=== PATIENT | female | born 1950 | race Caucasian/White ===

== ENCOUNTER 2018-03-29 05:14 | Outpatient (RCR) | payer MEDICARE, BC ==
[~2018-03-29] VITALS: Ht 177.8 cm; Wt 85.9 kg
[~2018-03-29 05:14] MED LIST: ALBUTEROL0.09 MG/A4 IH; ATORVASTATIN CA10 MG PO; DIABETA5 MG PO; DUO-KAPS1 CAP PO; FUROSEMIDE20 MG PO; GOOD SENSE ASPI81 M1 PO; LANTUS100 U/ML SQ; LISINOPRIL5 MG PO; METFORMIN500 MG PO; METOPROLOL TART25 MG PO; NITROQUICK0.4 MG SL; NOVOLOG 100U100 U/M1 SC; WARFARIN SOD5 MG PO; ZOFRAN ODT8 MG PO
[2018-03-29 05:30] VITALS: BP 141/76
[2018-03-29] MEDS ORDERED: MAXIPIME2 G1 IV (05:42)
[2018-03-29] MEDS ORDERED: NORCO 325 MG-51 TA1 PO (05:42)
[2018-03-29] MEDS ORDERED: ADVIL PM CAPLE1 EACH PO (05:43)
[2018-03-29] MEDS ORDERED: INVOKAMET XR 11 EAC1 PO (05:44)
[2018-03-29] MEDS ORDERED: XARELTO20 MG PO (05:44)
[2018-03-29] MEDS ORDERED: VANCOMYCIN 11 G/VIAL IV (05:45)
[2018-03-29 08:00] VITALS: BP 161/90
[2018-03-29 17:11] VITALS: BP 151/116
[2018-03-29 19:23] VITALS: BP 152/62
[2018-03-30 05:08] VITALS: BP 140/73
[2018-03-30 07:26] VITALS: BP 144/81
[2018-03-30 17:24] VITALS: BP 146/78
[2018-03-30 19:25] VITALS: BP 134/82
[2018-03-31 05:00] VITALS: BP 137/65
[2018-03-31 07:23] VITALS: BP 121/65
[2018-03-31 16:52] VITALS: BP 111/63
[2018-03-31 19:22] VITALS: BP 146/70
[2018-04-01 05:00] VITALS: BP 153/70
[2018-04-01 05:11] VITALS: BP 153/70
[2018-04-01 07:29] VITALS: BP 137/76
[2018-04-01 17:03] VITALS: BP 126/74
[2018-04-01 20:04] VITALS: BP 115/70
[2018-04-02 05:12] VITALS: BP 135/84
[2018-04-02 07:10] VITALS: BP 167/89
[2018-04-02 16:49] VITALS: BP 131/61
[2018-04-02 19:08] VITALS: BP 130/64
[2018-04-03 05:03] VITALS: BP 148/69
[2018-04-03 07:00] VITALS: BP 132/63
[2018-04-03 17:00] VITALS: BP 116/68
[2018-04-03 19:05] VITALS: BP 147/73
[2018-04-04 05:03] VITALS: BP 131/63
[2018-04-04 07:17] VITALS: BP 139/74
[2018-04-04 18:23] VITALS: BP 107/62
[2018-04-04 19:50] VITALS: BP 143/71
[2018-04-05] MEDS ORDERED: ZESTRIL5 M1 PO (05:04)
[2018-04-05] MEDS ORDERED: JANUMET XR 10001 TE1 PO (05:27)
[2018-04-05] MEDS ORDERED: LIPITOR 80MG80 MG PO (05:29)
[2018-04-05] MEDS ORDERED: COREG 3.123.125 MG/T PO (05:29)
[2018-04-05] MEDS ORDERED: VICTOZA 3-0.6 MG/0.1 SQ (05:30)
[2018-04-05 06:02] VITALS: BP 138/69
[2018-04-05 07:55] VITALS: BP 135/66
[2018-04-05 16:51] VITALS: BP 92/56
[2018-04-05 19:00] VITALS: BP 113/67
[2018-04-06 04:55] VITALS: BP 139/64
[2018-04-06 07:19] VITALS: BP 130/63
--- NOTE | 2018-04-06 09:09 | NUR ---
CONTACTED KATELYNN VENEGAS D AT [facility] WITH VANC TROUGH, ORDERS TO HOLD THIS 5PM DOSE, REDRAW TROUGH IN AM, AT THIS TIME ALSO HOLD AM VANC DOSE.
--- NOTE | 2018-04-06 09:37 | NUR ---
CHANGE OF ORDERS BY PHARMACY, PATIENT NOTIFIED OF NO DOSING THIS PM, SHE STATES SHE WAS CALLED BY DR. GALARZA OFFICE TO BE SEEN TODAY. SHE C/O LEG EDEMA, ABDOMINAL BLOATING AND ABDOMINAL PAIN, ATEMPTED TO CONTACT DR. GALARZA OFFICE-MESSAGE LEFT ON VOICEMAIL.
--- NOTE | 2018-04-06 10:34 | NUR ---
DR. OSEI OFFICE RETURNS CALL, UPDATE GIVEN
[2018-04-07 05:05] VITALS: BP 152/77
--- NOTE | 2018-04-07 05:15 | NUR ---
PATIENT HAS BEEN HAVING DIARRHEA FOR 2 DAYS, ALSO HAS BEEN NAUSEATED AND NOT KEEPING SOLID FOOD DOWN, ARRIVES THIS AM WITH A STOOL SAMPLE FOR C-DIFF CULTURE, BLOOD DRAWN FROM PICC LINE WITHOUT DIFFICULTY AND SENT TO LAB FOR VANCOMYCIN TROUGH AND REPEAT SERUM CREATININE LEVEL, IV ANTIBIOTICS STARTED VIA PICC LINE AT THIS TIME, PATIENT RESTING QUIETLY ON COT WITH COOL CLOTH TO FOREHEAD
--- NOTE | 2018-04-07 05:50 | NUR ---
IV ANTIBIOTICS COMPLETED, CAPS CHANGES TO BOTH PICC PORTS AND BOTH FLUSHED EASILY, PATIENT VOMITS ABOUT 50 CC OF BILE, CLAIMS SHE HAS BEEN KEEPING SOME FLUIDS DOWN BUT CAN "BARELY TAKE PLAIN TOAST RIGHT NOW" ENCOURAGED TO TRY TO STAY HYDRATED, NOT TO EAT IF SHE FEELS LIKE SHE WILL VOMIT IT UP AND TO FOLLOW UP WITH HER PROVIDER NEEDED, NURSING STAFF WILL CALL HER WITH THE VANCOMYCIN TROUGH RESULTS AND PLAN FOR FUTURE IV ANTIBIOTIC DOSES, PATIENT VERBALIZES UNDERSTANDING OF PLAN
[2018-04-07 05:56] VITALS: BP 151/93
--- NOTE | 2018-04-07 14:50 | NUR ---
Message left with Dr. Church nurse with creatnine results.
== END 2018-04-07 08:00 | disposition home or self-care (01) ==
LOC: AMSURD 05:14
DX: E11.621 Type 2 diabetes mellitus with foot ulcer (principal); L97.519 Non-pressure chronic ulcer of other part of right foot with unspecified severity; L03.115 Cellulitis of right lower limb; R19.7 Diarrhea, unspecified
CPT/HCPCS: J0692; J1644; J3370; J7040; J7050

== ENCOUNTER → 2018-03-30 | Outpatient (CLI) | payer MEDICARE, BC ==
[~2018-03-30] MED LIST changes: +ADVIL PM CAPLE1 EACH PO; +INVOKAMET XR 11 EAC1 PO; +MAXIPIME2 G1 IV; +NORCO 325 MG-51 TA1 PO; +VANCOMYCIN 11 G/VIAL IV; +XARELTO20 MG PO
[2018-03-30 05:08] VITALS: BP 140/73
[2018-03-30 07:15] LABS: HEMATOCRIT 36.7 % (37.0-47.0); HEMOGLOBIN 12.4 g/dL (12.5-16.0); RED BLOOD COUNT 4.43 M/mm3 (4.10-5.30); RED CELL DISTRIBUTION WIDTH 15.3 % (11.5-14.5); WHITE BLOOD COUNT 6.3 K/mm3 (4.8-10.8)
[2018-03-30 07:26] LABS: ALBUMIN 3.5 g/dL (3.5-5.0); CALCIUM 8.5 mg/dL (8.4-10.2); POTASSIUM 3.4 mmol/L (3.6-5.0); TOTAL BILIRUBIN 0.7 mg/dL (0.2-1.3); TOTAL PROTEIN 6.8 g/dL (6.3-8.2)
== END ==
LOC: LAB 05:22
PROVIDERS: Internal Medicine Infectious Disease
DX: E11.628 Type 2 diabetes mellitus with other skin complications (principal); L03.115 Cellulitis of right lower limb

== ENCOUNTER → 2018-04-06 | Outpatient (CLI) | payer MEDICARE, BC ==
[2018-04-05 19:00] VITALS: BP 113/67
[~2018-04-06] MED LIST changes: +COREG 3.123.125 MG/T PO; +JANUMET XR 10001 TE1 PO; +LIPITOR 80MG80 MG PO; +VICTOZA 3-0.6 MG/0.1 SQ; +ZESTRIL5 M1 PO
[2018-04-06 06:00] LABS: HEMATOCRIT 34.9 % (37.0-47.0); HEMOGLOBIN 11.6 g/dL (12.5-16.0); MEAN PLATELET VOLUME 10.1 fl (7.4-10.4); RED BLOOD COUNT 4.14 M/mm3 (4.10-5.30); WHITE BLOOD COUNT 8.3 K/mm3 (4.8-10.8)
[2018-04-06 06:01] LABS: ALBUMIN 3.4 g/dL (3.5-5.0); BUN/CREATININE RATIO 9.4 (6.0-26.0); CALCIUM 8.2 mg/dL (8.4-10.2); POTASSIUM 3.4 mmol/L (3.6-5.0); TOTAL BILIRUBIN 0.7 mg/dL (0.2-1.3); TOTAL PROTEIN 6.4 g/dL (6.3-8.2)
[2018-04-06 13:50] LABS: C-REACTIVE PROTEIN XXX
== END ==
LOC: LAB 04:55
PROVIDERS: Internal Medicine Infectious Disease
DX: E11.628 Type 2 diabetes mellitus with other skin complications (principal); L03.115 Cellulitis of right lower limb

== ENCOUNTER → 2018-04-07 | Outpatient (CLI) | payer MEDICARE, BC ==
[2018-04-06 07:19] VITALS: BP 130/63
== END ==
LOC: LAB 05:04
PROVIDERS: Nurse Practitioner Family
DX: R19.5 Other fecal abnormalities (principal); E11.621 Type 2 diabetes mellitus with foot ulcer

== ENCOUNTER 2018-04-15 09:04 | Emergency (ER) | payer MEDICARE, BC ==
[2018-04-15] MEDS ORDERED: FLAGYL500 M1 PO (09:42)
[2018-04-15] MEDS ORDERED: ELIQUIS2.5 MG PO (09:42)
[2018-04-15 10:01] LABS: HEMATOCRIT 31.8 % (37.0-47.0); HEMOGLOBIN 10.5 g/dL (12.5-16.0); MEAN CELL VOLUME 83 fl (78-100); MEAN CORPUSCULAR HEMOGLOBIN 28 pg (27-31); MEAN CORPUSCULAR HGB CONC 33 g/dL (33-37); MEAN PLATELET VOLUME 9.9 fl (7.4-10.4); PLATELET COUNT 215 K/mm3 (130-400); RED BLOOD COUNT 3.82 M/mm3 (4.10-5.30); RED CELL DISTRIBUTION WIDTH 15.5 % (11.5-14.5)
[2018-04-15 10:10] LABS: ALBUMIN 3.4 g/dL (3.5-5.0); BUN/CREATININE RATIO 8.5 (6.0-26.0); CALCIUM 8.5 mg/dL (8.4-10.2); POTASSIUM 3.8 mmol/L (3.6-5.0); TOTAL BILIRUBIN 0.9 mg/dL (0.2-1.3); TOTAL PROTEIN 6.9 g/dL (6.3-8.2)
[2018-04-15 10:21] LABS: TROPONIN-I < 0.03 ng/mL (0.00-0.06)
[2018-04-15 10:38] LABS: LYMPHOCYTE 6 % (20-51); NEUTROPHILS 80 % (42-75)
[2018-04-15 10:39] LABS: URINE APPEARANCE HAZY; URINE COLOR YELLOW
[2018-04-15 10:39] LABS: MONOCYTE 10 % (3-10)
[2018-04-15 10:40] LABS: URINE BILIRUBIN NEGATIVE (NEGATIVE); URINE BLOOD TRACE (NEGATIVE); URINE KETONE NEGATIVE (NEGATIVE); URINE LEUKOCYTE ESTERASE TRACE (NEGATIVE); URINE NITRATE NEGATIVE (NEGATIVE); URINE PROTEIN(semi-quant) TRACE mg/dL (NEGATIVE); URINE UROBILINOGEN NORMAL (NORMAL)
[2018-04-15 13:08] VITALS: BP 151/61
== END 2018-04-15 12:53 | disposition home or self-care (01) ==
LOC: ED 09:04
PROVIDERS: Family Medicine
DX: I13.2 Hypertensive heart and chronic kidney disease with heart failure and with stage 5 chronic kidney disease, or end stage renal disease (principal); I50.1 Left ventricular failure, unspecified; E11.22 Type 2 diabetes mellitus with diabetic chronic kidney disease; N18.6 End stage renal disease; Z99.2 Dependence on renal dialysis; I48.91 Unspecified atrial fibrillation; Z95.0 Presence of cardiac pacemaker; Z79.01 Long term (current) use of anticoagulants; Z79.899 Other long term (current) drug therapy
CPT/HCPCS: J1940

== ENCOUNTER 2018-04-16 18:03 | Outpatient (RCR) | payer MEDICARE, BC ==
[~2018-04-16] VITALS: Ht 177.8 cm; Wt 94.0 kg
[~2018-04-16 18:03] MED LIST changes: +ELIQUIS2.5 MG PO; +FLAGYL500 M1 PO
[2018-04-16 18:04] VITALS: BP 163/85
--- NOTE | 2018-04-18 20:00 | NUR ---
Patient arrives for IV cubicin infusion. States that she just finished with dialysis in [place]. Medication is out of stock and not available. Attempted to contact [facility] pharmacy, as this medication is premixed and sent over. No answer x3. Suly Smith RN notified. Weekly labs drawn from PICC per protocol. Double lumen PICC, both lumens flush without difficulty. Blood return noted to both lumens. Patient updated, plan is to come in first thing in the morning for IV cubicin. Informed patient that she will be called only if plan changes. Patient verbalizes understanding. Denies questions or needs at this time.
--- NOTE | 2018-04-18 21:25 | NUR ---
Contacted mix house operator at [facility] regarding IV cubicin. States that she will contact the health and wellness sales consultant pharmacist and then call back with plan.
--- NOTE | 2018-04-18 22:00 | NUR ---
PHARMACY PRESENTATION TEAM MEMBER LAUREN WAS CONTACTED, HE WILL PERSONALLY MIX THE ANTIBIOTIC FIRST THING IN THE MORNING AND DRIVE IT OVER TO THIS HOSPITAL, PATIENT CALLED AND SHE IS PLANNING TO ARRIVE IN THE AM BETWEEN 0830 AND 0900, LABS WERE DRAWN TONTELMA, DR. AGARWAL WILL BE CONTACTED IN THE AM WITH THE LAB RESULTS AND CONSULTED ABOUT WHEN THE NEXT DOSE SHOULD BE GIVEN SHE WILL BE SIGNIFICANTLY OFF HER SCHEDULE, PATIENT AGREEABLE TO PLAN
--- NOTE | 2018-04-19 08:30 | NUR ---
Spoke w/ Berry RN w/ Dr. Reaves and notified of pt's missed daptomycin dose last evening as miscommunication w/ pharmacy having the med prepared. Pt to receive dose this am. Per Dr. Reaves, pt may recevie her next dose of daptomycin tomorrow after her dialysis and then resume every 48 hours. Pharmacy requests repeat Chemistry in am 04/20 prior to dialysis - if kidney function improves pt may be able to return to daily daptomycin. will continue to monitor. Dr. Reaves notified of pharmacy request for lab tomorrow and order received from Dr. Reaves for pt to have chemistry drawn in am prior to Daptomycin dose. Pt has f/u appt w/ dr. reaves on Tuesday which she is to keep.
[2018-04-19 10:13] VITALS: BP 149/65
--- NOTE | 2018-04-19 10:45 | NUR ---
Pt reports that she will be in at 4:45 tomorrow am for [employer] [facility] lab as ordered. Lab staff notified.
[2018-04-19 11:26] VITALS: BP 150/72
[2018-04-20 18:00] VITALS: BP 130/72
[2018-04-22 08:43] VITALS: BP 150/87
[2018-04-22 08:45] VITALS: BP 166/93
[2018-04-24 08:58] VITALS: BP 137/94
[2018-04-26 09:00] VITALS: BP 151/90
[2018-04-28 08:34] VITALS: BP 139/79
== END 2018-04-28 10:00 | disposition home or self-care (01) ==
LOC: AMSURD 18:03
DX: E11.621 Type 2 diabetes mellitus with foot ulcer (principal); L97.519 Non-pressure chronic ulcer of other part of right foot with unspecified severity; Z45.2 Encounter for adjustment and management of vascular access device; Z95.9 Presence of cardiac and vascular implant and graft, unspecified
CPT/HCPCS: J0878; J1644

== ENCOUNTER → 2018-04-18 | Outpatient (CLI) | payer MEDICARE, BC ==
[2018-04-16 18:04] VITALS: BP 163/85
[2018-04-18 22:44] LABS: HEMATOCRIT 33.2 % (37.0-47.0); MEAN PLATELET VOLUME 9.8 fl (7.4-10.4); RED BLOOD COUNT 4.03 M/mm3 (4.10-5.30); RED CELL DISTRIBUTION WIDTH 14.9 % (11.5-14.5)
[2018-04-18 22:49] LABS: ALBUMIN 3.7 g/dL (3.5-5.0); BUN/CREATININE RATIO 11.9 (6.0-26.0); CALCIUM 8.3 mg/dL (8.4-10.2); TOTAL BILIRUBIN 1.1 mg/dL (0.2-1.3); TOTAL PROTEIN 7.2 g/dL (6.3-8.2)
== END ==
LOC: LAB 08:30
PROVIDERS: Internal Medicine Infectious Disease
DX: E11.628 Type 2 diabetes mellitus with other skin complications (principal); L03.115 Cellulitis of right lower limb

== ENCOUNTER → 2018-04-20 | Outpatient (CLI) | payer MEDICARE, BC ==
[2018-04-19 11:26] VITALS: BP 150/72
[2018-04-20 05:29] LABS: ALBUMIN 3.6 g/dL (3.5-5.0); BUN/CREATININE RATIO 16.7 (6.0-26.0); CALCIUM 7.4 mg/dL (8.4-10.2); POTASSIUM 3.4 mmol/L (3.6-5.0); TOTAL BILIRUBIN 0.7 mg/dL (0.2-1.3); TOTAL PROTEIN 7.1 g/dL (6.3-8.2)
== END ==
LOC: LAB 04:58
PROVIDERS: Internal Medicine Infectious Disease
DX: E11.621 Type 2 diabetes mellitus with foot ulcer (principal); L97.519 Non-pressure chronic ulcer of other part of right foot with unspecified severity

== ENCOUNTER 2018-05-12 16:38 | Outpatient (RCR) | payer MEDICARE, BC ==
[2018-05-04 08:33] VITALS: BP 137/68
[2018-05-07 12:58] VITALS: BP 149/85
[2018-05-08 08:14] VITALS: BP 138/71
--- NOTE | 2018-05-08 08:37 | NUR ---
DR AGARWAL'S OFFICE CONTACTED REGARDING PICC REMOVAL. PATIENT'S LAST DOSE ANTIBIOTIC TOMORROW. WOUND CARE WILL CALL BACK WITH RESPONSE.
[2018-05-09 08:41] VITALS: BP 176/80
[2018-05-10 17:24] VITALS: BP 129/67
[2018-05-11 16:37] VITALS: BP 121/79
[~2018-05-12] VITALS: Ht 177.8 cm; Wt 78.2 kg
--- NOTE | 2018-05-12 16:45 | NUR ---
Blood drawn from PICC for lab orders - 10 ml wasted and 10 ml of blood drawn. PICC flushed w/ 10 ml NS and abx then infused as ordered.
--- NOTE | 2018-05-12 16:55 | NUR ---
PICC dc'd as ordered. See PICC removal intervention for details.
[2018-05-12 17:00] VITALS: BP 98/62
== END 2018-05-12 18:00 | disposition home or self-care (01) ==
LOC: AMSURD 16:38
DX: E11.621 Type 2 diabetes mellitus with foot ulcer (principal); L97.519 Non-pressure chronic ulcer of other part of right foot with unspecified severity
CPT/HCPCS: J0878; J1644

== ENCOUNTER → 2018-05-12 | Outpatient (CLI) | payer MEDICARE, BC ==
[2018-05-11 16:37] VITALS: BP 121/79
[2018-05-12 17:55] LABS: HEMATOCRIT 30.8 % (37.0-47.0); HEMOGLOBIN 10.1 g/dL (12.5-16.0); MEAN PLATELET VOLUME 10.5 fl (7.4-10.4); RED BLOOD COUNT 3.66 M/mm3 (4.10-5.30); RED CELL DISTRIBUTION WIDTH 15.5 % (11.5-14.5); WHITE BLOOD COUNT 5.3 K/mm3 (4.8-10.8)
[2018-05-12 18:04] LABS: ALBUMIN 3.9 g/dL (3.5-5.0); BUN/CREATININE RATIO 13.2 (6.0-26.0); CALCIUM 9.1 mg/dL (8.4-10.2); POTASSIUM 3.7 mmol/L (3.6-5.0); TOTAL BILIRUBIN 0.8 mg/dL (0.2-1.3)
== END ==
LOC: LAB 16:38
PROVIDERS: Internal Medicine Infectious Disease
DX: L08.9 Local infection of the skin and subcutaneous tissue, unspecified (principal)

== ENCOUNTER → 2018-08-01 | Outpatient (CLI) | payer MEDICARE, BC ==
[2018-08-01 11:12] LABS: EOS # 0.1 (0.04-0.40); EOS % 2.3 % (1.0-5.0); HEMATOCRIT 35.8 % (37.0-47.0); HEMOGLOBIN 11.5 g/dL (12.5-16.0); LYMPH# 0.9 (1.50-4.00); MEAN CELL VOLUME 83 fl (78-100); MEAN CORPUSCULAR HEMOGLOBIN 27 pg (27-31); MEAN CORPUSCULAR HGB CONC 32 g/dL (33-37); MEAN PLATELET VOLUME 10.2 fl (7.4-10.4); MONO # 0.3 (0.20-0.80); NEU # 3.5 (1.40-6.50); PLATELET COUNT 195 K/mm3 (130-400); RED CELL DISTRIBUTION WIDTH 14.1 % (11.5-14.5); WHITE BLOOD COUNT 4.9 K/mm3 (4.8-10.8)
[2018-08-01 11:14] LABS: ALBUMIN 4.2 g/dL (3.5-5.0); CALCIUM 9.2 mg/dL (8.4-10.2); POTASSIUM 3.6 mmol/L (3.6-5.0); TOTAL BILIRUBIN 1.3 mg/dL (0.2-1.3); TOTAL PROTEIN 7.7 g/dL (6.3-8.2)
== END ==
LOC: RAD 10:49
DX: K91.0 Vomiting following gastrointestinal surgery (principal); G89.18 Other acute postprocedural pain; R10.9 Unspecified abdominal pain; R19.7 Diarrhea, unspecified
CPT/HCPCS: Q9967

== ENCOUNTER → 2018-08-22 | Day surgery (SDC) | payer MEDICARE, BC | LOC: MSO 09:56 | DX: R19.7 Diarrhea, unspecified (principal); R11.2 Nausea with vomiting, unspecified; K29.70 Gastritis, unspecified, without bleeding; K57.30 Diverticulosis of large intestine without perforation or abscess without bleeding; I48.91 Unspecified atrial fibrillation; Z79.01 Long term (current) use of anticoagulants; Z79.82 Long term (current) use of aspirin; I38 Endocarditis, valve unspecified; R05 Cough; E11.9 Type 2 diabetes mellitus without complications; Z88.0 Allergy status to penicillin | CPT/HCPCS: 00813; A4649; J2704; J7030 ==

== ENCOUNTER → 2018-09-04 | Outpatient (CLI) | payer MEDICARE, BC | LOC: LAB 13:13 | DX: R10.9 Unspecified abdominal pain (principal); R14.0 Abdominal distension (gaseous); R19.7 Diarrhea, unspecified; R14.2 Eructation; R14.3 Flatulence; R19.4 Change in bowel habit ==

== ENCOUNTER 2019-02-16 23:39 | Emergency (ER) | payer MEDICARE, BC ==
[~2019-02-16] VITALS: Ht 154.9 cm; Wt 84.1 kg
[2019-02-17 00:34] LABS: EOS # 0.4 (0.04-0.40); EOS % 5.6 % (1.0-5.0); HEMOGLOBIN 12.8 g/dL (12.5-16.0); LYMPH# 1.6 (1.50-4.00); MEAN CELL VOLUME 82 fl (78-100); MEAN CORPUSCULAR HEMOGLOBIN 28 pg (27-31); MEAN CORPUSCULAR HGB CONC 34 g/dL (33-37); MEAN PLATELET VOLUME 9.5 fl (7.4-10.4); MONO # 0.6 (0.20-0.80); NEU # 4.7 (1.40-6.50); PLATELET COUNT 218 K/mm3 (130-400); RED BLOOD COUNT 4.66 M/mm3 (4.10-5.30); RED CELL DISTRIBUTION WIDTH 14.6 % (11.5-14.5); WHITE BLOOD COUNT 7.3 K/mm3 (4.8-10.8)
[2019-02-17 00:49] LABS: URINE APPEARANCE HAZY; URINE COLOR YELLOW; URINE PROTEIN(semi-quant) TRACE mg/dL (NEGATIVE)
[2019-02-17 00:49] LABS: CALCIUM 9.8 mg/dL (8.4-10.2); POTASSIUM 3.6 mmol/L (3.5-5.1); TOTAL BILIRUBIN 1.1 mg/dL (0.2-1.2); TOTAL PROTEIN 7.5 g/dL (6.2-8.1)
[2019-02-17 00:50] LABS: URINE BILIRUBIN NEGATIVE (NEGATIVE); URINE BLOOD NEGATIVE (NEGATIVE); URINE GLUCOSE NEGATIVE (NEGATIVE); URINE KETONE NEGATIVE (NEGATIVE); URINE LEUKOCYTE ESTERASE NEGATIVE (NEGATIVE); URINE NITRATE NEGATIVE (NEGATIVE); URINE UROBILINOGEN NORMAL (NORMAL)
[2019-02-17] MEDS ORDERED: LEVEMIR FLEX100 U/ML SQ (01:08)
[2019-02-17] MEDS ORDERED: ELIQUIS5 MG PO (01:09)
[2019-02-17] MEDS ORDERED: ASPIRIN E.C. 8181 MG PO (01:09)
[2019-02-17] MEDS ORDERED: LIPITOR 80MG80 MG PO (01:09)
[2019-02-17] MEDS ORDERED: LEXAPRO5 MG PO (01:10)
[2019-02-17] MEDS ORDERED: ACIDOPHILUS1 EAC2 PO (01:10)
[2019-02-17] MEDS ORDERED: COLACE100 M1 PO (01:10)
[2019-02-17] MEDS ORDERED: LASIX20 M1 PO (01:10)
[2019-02-17] MEDS ORDERED: NITROSTAT0.4 M1 SL (01:11)
[2019-02-17] MEDS ORDERED: LOPRESSOR 550 MG/TAB PO (01:11)
[2019-02-17] MEDS ORDERED: VICTOZA 3-0.6 MG/0.1 SQ (01:11)
[2019-02-17] MEDS ORDERED: PROAIR HFA0.09 MG/AC IH (01:11)
[2019-02-17] MEDS ORDERED: AMBIEN5 M1 PO (01:12)
[2019-02-17] MEDS ORDERED: ZOFRAN ODT4 MG PO (01:42)
[2019-02-17] MEDS ORDERED: GOOD NEIGHBOR P20 M1 PO (01:42)
[2019-02-17 01:50] VITALS: BP 117/64
== END 2019-02-17 01:50 | disposition home or self-care (01) ==
LOC: ED 23:39
PROVIDERS: Family Medicine
DX: K21.9 Gastro-esophageal reflux disease without esophagitis (principal); K59.00 Constipation, unspecified; I48.91 Unspecified atrial fibrillation; I25.10 Atherosclerotic heart disease of native coronary artery without angina pectoris; E11.9 Type 2 diabetes mellitus without complications; Z95.0 Presence of cardiac pacemaker; Z87.39 Personal history of other diseases of the musculoskeletal system and connective tissue; Z79.01 Long term (current) use of anticoagulants

== ENCOUNTER 2020-12-29 07:09 | Emergency (ER) | payer MEDICARE, BC ==
[~2020-12-29 07:09] MED LIST changes: +ACIDOPHILUS1 EAC2 PO; +AMBIEN5 M1 PO; +ASPIRIN E.C. 8181 MG PO; +COLACE100 M1 PO; +ELIQUIS5 MG PO; +GOOD NEIGHBOR P20 M1 PO; +LASIX20 M1 PO; +LEVEMIR FLEX100 U/ML SQ; +LEXAPRO 10MG10 MG PO; +LOPRESSOR 550 MG/TAB PO; +NITROSTAT0.4 M1 SL; +PIOGLITAZONE HC15 MG PO; +PROAIR HFA0.09 MG/AC IH; +ZOFRAN ODT4 MG PO
[2020-12-29] MEDS ORDERED: CLOPIDOGREL75 M2 PO (07:26)
[2020-12-29] MEDS ORDERED: GLIPIZIDE ER5 MG PO (07:27)
[2020-12-29] MEDS ORDERED: ESCITALOPRAM10 MG PO (07:27)
[2020-12-29] MEDS ORDERED: OMEPRAZOLE40 MG PO (07:27)
[2020-12-29] MEDS ORDERED: FUROSEMIDE20 MG PO (07:27)
[2020-12-29 09:38] VITALS: BP 154/74
== END 2020-12-29 09:18 | disposition home or self-care (01) ==
LOC: ED 07:09
DX: M25.561 Pain in right knee (principal); I10 Essential (primary) hypertension; F41.9 Anxiety disorder, unspecified; F32.9 Major depressive disorder, single episode, unspecified; Z79.01 Long term (current) use of anticoagulants; Z79.82 Long term (current) use of aspirin; Z88.0 Allergy status to penicillin; Z88.1 Allergy status to other antibiotic agents; Z79.84 Long term (current) use of oral hypoglycemic drugs; W01.10XA Fall on same level from slipping, tripping and stumbling with subsequent striking against unspecified object, initial encounter

== ENCOUNTER 2021-03-24 18:20 | Emergency (ER) | payer MEDICARE, BC ==
[~2021-03-24 18:20] MED LIST changes: +CLOPIDOGREL75 M2 PO; +ESCITALOPRAM10 MG PO; +GLIPIZIDE ER5 MG PO; +OMEPRAZOLE40 MG PO
[2021-03-24] MEDS ORDERED: FUROSEMIDE20 MG PO (18:50)
[2021-03-24] MEDS ORDERED: COLACE100 M1 PO (18:52)
[2021-03-24] MEDS ORDERED: LOSARTAN POTASS50 M1 PO (18:53)
[2021-03-24 20:55] LABS: BASO # 0.02 (0.02-0.10); EOS # 0.08 (0.04-0.40); EOS % 1.2 % (1.0-5.0); HEMATOCRIT 34.2 % (37.0-47.0); HEMOGLOBIN 11.4 g/dL (12.5-16.0); LYMPH# 1.06 (1.50-4.00); MEAN CELL VOLUME 77 fl (78-100); MEAN CORPUSCULAR HEMOGLOBIN 26 pg (27-31); MEAN CORPUSCULAR HGB CONC 33 g/dL (33-37); MONO # 0.42 (0.20-0.80); NEU # 4.87 (1.40-6.50); PLATELET COUNT 238 K/mm3 (130-400); RED BLOOD COUNT 4.42 M/mm3 (4.10-5.30); RED CELL DISTRIBUTION WIDTH 15.1 % (11.5-14.5); WHITE BLOOD COUNT 6.5 K/mm3 (4.8-10.8)
[2021-03-24 21:03] LABS: ALBUMIN 3.9 g/dL (3.4-4.8)
[2021-03-24 21:04] LABS: POTASSIUM 3.5 mmol/L (3.5-5.1)
[2021-03-24 21:05] LABS: CALCIUM 8.9 mg/dL (8.3-10.5)
[2021-03-24 21:06] LABS: TOTAL PROTEIN 8.1 g/dL (6.2-8.1)
[2021-03-24 21:07] LABS: URINE APPEARANCE HAZY; URINE COLOR YELLOW
[2021-03-24 21:08] LABS: URINE BLOOD 250 ery/uL (NEGATIVE); URINE KETONE NEGATIVE (NEGATIVE); URINE LEUKOCYTE ESTERASE TRACE (NEGATIVE); URINE NITRATE NEGATIVE (NEGATIVE); URINE PROTEIN(semi-quant) 2+ mg/dL (NEGATIVE); URINE UROBILINOGEN NORMAL (NORMAL)
[2021-03-24 21:09] LABS: URINE MUCUS PRESENT (NOT PRESENT)
[2021-03-24 21:12] LABS: URINE BILIRUBIN NEGATIVE (NEGATIVE)
[2021-03-24 23:58] VITALS: BP 142/56
== END 2021-03-24 23:58 | disposition home or self-care (01) ==
LOC: ED 18:20
PROVIDERS: Nurse Practitioner Family
DX: S52.121A Displaced fracture of head of right radius, initial encounter for closed fracture (principal); S52.132A Displaced fracture of neck of left radius, initial encounter for closed fracture; S00.83XA Contusion of other part of head, initial encounter; R51.9 Headache, unspecified; R68.84 Jaw pain; I48.91 Unspecified atrial fibrillation; I25.10 Atherosclerotic heart disease of native coronary artery without angina pectoris; I10 Essential (primary) hypertension; F41.9 Anxiety disorder, unspecified; F32.9 Major depressive disorder, single episode, unspecified; Z79.02 Long term (current) use of antithrombotics/antiplatelets; Z95.0 Presence of cardiac pacemaker; Z79.899 Other long term (current) drug therapy; Z79.01 Long term (current) use of anticoagulants; W01.0XXA Fall on same level from slipping, tripping and stumbling without subsequent striking against object, initial encounter; Y92.89 Other specified places as the place of occurrence of the external cause
CPT/HCPCS: J2405; J3010

== ENCOUNTER 2021-12-19 18:46 | Emergency (ER) | payer MEDICARE, BC ==
[~2021-12-19] VITALS: Ht 154.9 cm; Wt 90.5 kg
[~2021-12-19 18:46] MED LIST changes: +LOSARTAN POTASS50 M1 PO
[2021-12-19] MEDS ORDERED: ADULT ASPIRIN R81 MG PO (19:02)
[2021-12-19 21:41] VITALS: BP 131/84
== END 2021-12-19 21:41 | disposition home or self-care (01) ==
LOC: ED 18:46
DX: S00.83XA Contusion of other part of head, initial encounter (principal); M54.2 Cervicalgia; W07.XXXA Fall from chair, initial encounter

== ENCOUNTER 2023-05-03 16:25 | Outpatient (RCR) | payer MEDICARE, BC ==
[~2023-05-03 16:25] MED LIST changes: +ACTOS 15MG TAB15 MG; +ADULT ASPIRIN R81 MG PO; +METOPROLOL TART75 MG PO; +PROVENTIL0.09 MG/A1 IH
== END 2023-06-02 | disposition home or self-care (01) ==
LOC: PT
DX: Z47.1 Aftercare following joint replacement surgery (principal); M25.511 Pain in right shoulder; Z96.611 Presence of right artificial shoulder joint

== ENCOUNTER 2023-08-19 11:06 | Outpatient (RCR) | payer MEDICARE, BC | END 2023-09-01 | disposition home or self-care (01) | LOC: PT | DX: Z47.1 Aftercare following joint replacement surgery (principal); M25.511 Pain in right shoulder; Z96.611 Presence of right artificial shoulder joint ==

== ENCOUNTER → 2023-11-03 | Outpatient (CLI) | payer MEDICARE, BC | LOC: LAB 09:48 | DX: R91.1 Solitary pulmonary nodule (principal) ==

== ENCOUNTER 2024-01-09 08:06 | Outpatient (RCR) | payer MEDICARE, BC ==
[2024-01-14] MEDS ORDERED: LOSARTAN POTASS25 MG PO (15:31)
[2024-01-14] MEDS ORDERED: JARDIANCE10 MG PO (15:33)
[2024-01-14] MEDS ORDERED: ALDACTONE 25MG25 MG PO (15:34)
== END 2024-01-31 | disposition home or self-care (01) ==
LOC: CARDREHAB
DX: Z48.812 Encounter for surgical aftercare following surgery on the circulatory system (principal); Z98.61 Coronary angioplasty status

== ENCOUNTER → 2024-01-13 | Outpatient (CLI) | payer MEDICARE, BC ==
[~2024-01-13] MED LIST changes: +ALDACTONE 25MG25 MG PO; +JARDIANCE10 MG PO; +LOSARTAN POTASS25 MG PO
[2024-01-13 09:32] LABS: ALBUMIN 4.3 g/dL (3.4-4.8)
[2024-01-13 09:33] LABS: CALCIUM 10.4 mg/dL (8.3-10.5)
[2024-01-13 11:03] LABS: PH-URINE 5.5 (5.0 - 8.0); URINE APPEARANCE CLEAR (CLEAR); URINE BILIRUBIN NEGATIVE (NEGATIVE); URINE BLOOD NEGATIVE (NEGATIVE); URINE COLOR YELLOW (YELLOW); URINE GLUCOSE NEGATIVE (NEGATIVE); URINE KETONE NEGATIVE (NEGATIVE); URINE LEUKOCYTE ESTERASE NEGATIVE (NEGATIVE); URINE NITRATE NEGATIVE (NEGATIVE); URINE PROTEIN(semi-quant) NEGATIVE (NEGATIVE)
== END ==
LOC: RAD 08:56
PROVIDERS: Internal Medicine Nephrology
DX: N18.2 Chronic kidney disease, stage 2 (mild) (principal)

== ENCOUNTER 2024-02-06 08:00 | Outpatient (RCR) | payer MEDICARE, BC | END 2024-03-02 | disposition home or self-care (01) | LOC: CARDREHAB | DX: Z48.812 Encounter for surgical aftercare following surgery on the circulatory system (principal); Z98.61 Coronary angioplasty status ==

== ENCOUNTER 2024-04-16 08:00 | Outpatient (RCR) | payer MEDICARE, BC ==
[~2024-04-16 08:00] MED LIST changes: +NEURONTIN300 MG/CAP; +PRASUGREL HCL10 MG PO
== END 2024-05-02 | disposition home or self-care (01) ==
LOC: PT
DX: M50.321 Other cervical disc degeneration at C4-C5 level (principal)

== ENCOUNTER 2024-06-05 08:00 | Outpatient (RCR) | payer MEDICARE, BC ==
[2024-08-22] MEDS ORDERED: FARXIGA5 MG PO (18:17)
[2024-08-22] MEDS ORDERED: OZEMPIC0.25 MG/02 SQ (18:17)
[2024-08-24] MEDS ORDERED: K-TAB20 MEQ PO (12:49)
== END 2024-07-02 | disposition home or self-care (01) ==
LOC: PT
DX: M25.511 Pain in right shoulder (principal); M25.512 Pain in left shoulder; M54.2 Cervicalgia

== ENCOUNTER 2024-07-18 08:30 | Outpatient (RCR) | payer MEDICARE, BC ==
[2024-07-24] MEDS ORDERED: ATORVASTATIN CA80 MG PO (08:53)
[2024-07-24] MEDS ORDERED: METOPROLOL SUCC25 M1 PO (08:56)
[2024-07-24] MEDS ORDERED: ESCITALOPRAM20 MG PO (09:00)
[2024-08-22] MEDS ORDERED: OZEMPIC0.25 MG/02 SQ (18:17)
[2024-08-22] MEDS ORDERED: FARXIGA5 MG PO (18:17)
[2024-08-24] MEDS ORDERED: K-TAB20 MEQ PO (12:49)
== END 2024-08-02 | disposition home or self-care (01) ==
LOC: PT
DX: M54.2 Cervicalgia (principal); M25.511 Pain in right shoulder; M25.512 Pain in left shoulder

== ENCOUNTER 2024-07-24 08:17 | Emergency (ER) | payer MEDICARE, BC ==
[~2024-07-24] VITALS: Ht 154.9 cm; Wt 86.8 kg
[2024-07-24] MEDS ORDERED: Furosemide 40 MG/4 ML VIAL IV ONE (08:30)
[2024-07-24 08:40] LABS: BASO # 0.01 K/mm3 (0.02-0.10); EOS # 0.11 K/mm3 (0.04-0.40); EOS % 2.7 % (1.0-5.0); HEMATOCRIT 32.5 % (37.0-47.0); HEMOGLOBIN 10.8 g/dL (12.5-16.0); LYMPH# 0.74 K/mm3 (1.50-4.00); MEAN CELL VOLUME 86 fl (78-100); MEAN CORPUSCULAR HEMOGLOBIN 29 pg (27-31); MEAN CORPUSCULAR HGB CONC 33 g/dL (33-37); MEAN PLATELET VOLUME 9.8 fl (7.4-10.4); MONO # 0.31 K/mm3 (0.20-0.80); NEU # 2.82 K/mm3 (1.40-6.50); PLATELET COUNT 162 K/mm3 (130-400); RED BLOOD COUNT 3.77 M/mm3 (4.10-5.30); RED CELL DISTRIBUTION WIDTH 14.7 % (11.5-14.5)
[2024-07-24 08:51] LABS: ALBUMIN 4.1 g/dL (3.4-4.8)
[2024-07-24 08:53] LABS: CALCIUM 9.4 mg/dL (8.3-10.5)
[2024-07-24] MEDS ORDERED: ATORVASTATIN CA80 MG PO (08:53)
[2024-07-24 08:54] LABS: TOTAL PROTEIN 6.9 g/dL (6.2-8.1)
[2024-07-24 08:56] LABS: TOTAL BILIRUBIN 0.7 mg/dL (0.2-1.2)
[2024-07-24] MEDS ORDERED: METOPROLOL SUCC25 M1 PO (08:56)
[2024-07-24 08:58] LABS: PROTHROMBIN TIME 10.9 SECONDS (9.0-12.0)
[2024-07-24] MEDS ORDERED: ESCITALOPRAM20 MG PO (09:00)
[2024-07-24] MEDS ORDERED: Iohexol 350 - 100 ML VIAL IV ONE (09:18)
[2024-07-24 10:25] VITALS: BP 122/72
== END 2024-07-24 10:38 | disposition other institution (70) ==
LOC: ED 08:17
PROVIDERS: Physician Assistant
DX: J90 Pleural effusion, not elsewhere classified (principal); I50.9 Heart failure, unspecified; D64.9 Anemia, unspecified; Z91.040 Latex allergy status; Z90.49 Acquired absence of other specified parts of digestive tract
CPT/HCPCS: J1940; Q9967

== ENCOUNTER → 2024-09-04 | Outpatient (CLI) | payer MEDICARE, BC ==
[~2024-09-04] VITALS: Ht 154.9 cm; Wt 86.6 kg
[~2024-09-04] MED LIST changes: +ATORVASTATIN CA80 MG PO; +ESCITALOPRAM20 MG PO; +FARXIGA5 MG PO; +K-TAB20 MEQ PO; +METOPROLOL SUCC25 M1 PO; +OZEMPIC0.25 MG/02 SQ
[2024-09-04 15:51] VITALS: BP 121/61
--- NOTE | 2024-09-04 15:51 | NUR ---
SEE PROVIDER NOTE FROM Anum NEWSOME APRN.
--- NOTE | 2024-09-04 17:50 | NUR ---
PT PRESENTS TODAY FOR WOUND CARE TO RIGHT GREAT TOE. STATES SHE DROPPED A GLASS DISH ON HER RIGHT FOOT 3 WEEKS AGO. SHE NEVER NOTICED ANYTHING WRONG WITH HER TOE AND SHE HAS NO FEELING IN HER FEET DUE TO DIABETIC NEUROPATHY. HER RT GREAT TOE HAS A LARGE DARK PURPLE/BLACK AND VERY HARDENED AREA ON DISTAL TIP OF TOE AND ALONG THE SIDE OF THE TOE. ONE EDGE OF THE DARKENED AREA LOOKS LIKE RED BLOOD UNDER THE SKIN. THE INNER EDGE OF THE 2ND TOE ALSO HAS A HARDENED DARK PURPLE/BLACK TIP. THE FOOT HAS GOOD PULSES AND CAP REFILL IS 3 SECONDS. THERE ARE NO OPEN AREAS NOTED. DARK AREA ON PROXIMAL 1ST MTP MEASURES LENGTH 0.5CM X W 2.0CM. DISTAL 1ST MTP W 4.2CM X L 1.8CM. DARKENED AREA ON 2ND TOE MEASURED 1.0CM X 0.7CM. INSTRUCTIONS GIVEN TO PATIENT TO DO WARM EPSOM SALT SOAKS DAILY TO SOFTEN THESE HARDENED AREAS AND USE A PUMICE STONE ON AREAS AFTER SOAKS, PER Chaparro NEWSOME APRN. INSTRUCTED PT TO CALL TO SCHEDULE WOUND CARE APPT WHEN/IF THESE AREAS OPEN UP AND NEED ADDRESSED. PT WILL MONITOR THE AREAS DAILY WITH HELP OF THER SON WHO LIVES WITH HER.
--- NOTE | 2024-09-04 18:09 | NUR ---
PT WAS SEEN AND EVALUATED BY Anum NEWSOME APRN
== END ==
LOC: WOUND 15:06
DX: L89.890 Pressure ulcer of other site, unstageable (principal)